=== PATIENT | female | born 1940 | race Caucasian/White ===

== ENCOUNTER 2017-01-29 10:32 | Inpatient (IN) ==
[2017-01-29] MEDS ORDERED: ASPIRIN 325 MG TABLET PO STA (10:56)
[2017-01-29] MEDS ORDERED: DILTIAZEM 50 MG/10 ML VIAL IV STA (10:56)
[2017-01-29] MEDS ORDERED: DILTIAZEM 50 MG/10 ML VIAL IV ONE (11:12)
[2017-01-29] MEDS ORDERED: ASPIRIN 325 MG TABLET ONE (11:12)
[2017-01-29] MEDS ORDERED: DILTIAZEM 100 MG VIAL.ADD IV ONE (11:12)
[2017-01-29] MEDS ORDERED: SODIUM CHLORIDE 0.9% 100 ML IV ONE (11:12)
[2017-01-29] MEDS: DILTIAZEM INJ 100 MG in SODIUM CHLORIDE 0.9% 100 ML IV SCH (11:21)
[2017-01-29 12:00] LABS: Basophils # 0.1 10*3/uL (0.0-0.2); Eosinophils # 0.1 10*3/uL (0.0-0.87); Eosinophils % 1.1 % (0.00-10.9); Hematocrit 35.1 VOL% (35.7-47.0); Immature Granulocytes % 1.2 %; Immature Granulocytes Absolute 0.11 #; Lymphocytes # 1.5 10*3/uL (1.4-4.0); Lymphocytes % 16.4 % (21.3-54.2); Mean Corpuscular HGB Conc 34.8 GM/DL (32-36); Mean Corpuscular Hemoglobin 30 PG (27-34); Mean Corpuscular Volume 87.5 FL (87-102); Mean Platelet Volume 10.5 FL (9.6-12.0); Monocytes # 0.9 10*3/uL (0.11-0.8); Monocytes % 10.3 % (1.7-12.7); Neutrophils # 6.3 10*3/uL (1.4-7.4); Platelet Count 451 T/CUMM (130-400); Red Blood Count 4.01 MC/CUMM (3.8-5.5); Red Cell Distribution Width 13.6 % (9.3-17.3); White Blood Count 9.1 T/CUMM (4-12)
[2017-01-29 12:01] LABS: Hemoglobin 12.2 GM/DL (12.0-16.0)
[2017-01-29 12:08] LABS: Free T4 (Free Thyroxine) 1.2 NG/DL (0.76-1.46); Magnesium 1.3 MG/DL (1.8-2.4)
[2017-01-29 12:15] LABS: Albumin 3.8 G/DL (3.4-5.0); Bilirubin,Total 0.4 MG/DL (0.2-1.0); Calcium 9.2 MG/DL (8.5-10.1); Osmolality,Calculated 260.9 MOS/KG (273-304); Potassium 3.8 MMOL/L (3.5-5.1); Thyroid Stimulating Hormone 11.6 uIU/ml (0.358-3.74)
[2017-01-29 12:19] LABS: Troponin I Only 0.327 NG/ML (0.00-0.045)
[2017-01-29] MEDS ORDERED: DIGOXIN 0.5 MG/2 ML AMP IV STA ×3 (13:17→15:07)
[2017-01-29] MEDS ORDERED: DIGOXIN 0.5 MG/2 ML AMP ONE (13:19)
[2017-01-29] MEDS ORDERED: MAGNESIUM CHLORIDE 64 MG TABLET PO STA (13:20)
[2017-01-29] MEDS ORDERED: MAGNESIUM CHLORIDE 64 MG TABLET PO ONE (13:39)
[2017-01-29] MEDS ORDERED: MAGNESIUM SULF RIDER 4 GM in PREMIX 1 EACH IV PRN (14:11)
[2017-01-29] MEDS ORDERED: MAGNESIUM SULF RIDER 2 GM in PREMIX 1 EACH IV PRN (14:11)
[2017-01-29] MEDS ORDERED: SODIUM CHLORIDE 0.9% 500 ML IV STA (15:30)
[2017-01-29 16:03] LABS: Apearance,Urine CLEAR (Clear); Bilirubin,Urine Negative (Negative); Blood, Urine Small mg/dL (Negative); Glucose,Urine (UA) Negative (Negative); Ketones,Urine Negative (Negative); Mucus,Urine Occasional /LPF (Occasional); Nitrite,Urine Negative (Negative); Protein,Urine >=500 MG/DL; RBC,Urine 4 /HPF (0-4); Squamous Epithelial Cell,Urine Occasional /HPF (0-10); Urine Color Yellow (Yellow); Urine Specific Gravity 1.007 (1.001-1.035); Urine Urobilinogen < 2.0 EU/DL (0.2-1.0); WBC,Urine 1 /HPF (0-6)
[2017-01-29] MEDS ORDERED: ADENOSINE 6 MG/2 ML VIAL ONE (16:03)
[2017-01-29] MEDS ORDERED: METOPROLOL TARTRATE 5 MG/5 ML VIAL IV ONE (16:10)
[2017-01-29] MEDS ORDERED: ENOXAPARIN 60 MG/0.6 ML SYRINGE ONE (16:19)
[2017-01-29] MEDS ORDERED: METOPROLOL TARTRATE 50 MG TABLET ONE (16:19)
[2017-01-29] MEDS ORDERED: ENOXAPARIN 60 MG/0.6 ML SYRINGE SUBCUT STA (16:23)
[2017-01-29] MEDS ORDERED: ADENOSINE 6 MG/2 ML VIAL IV STA (16:23)
[2017-01-29] MEDS ORDERED: METOPROLOL TARTRATE 50 MG TABLET PO STA (16:23)
[2017-01-29] MEDS ORDERED: METOPROLOL TARTRATE 5 MG/5 ML VIAL IV STA (16:24)
[2017-01-29 16:43] LABS: Magnesium 1.5 MG/DL (1.8-2.4); Potassium 3.8 MMOL/L (3.5-5.1)
[2017-01-29] MEDS ORDERED: MAGNESIUM SULF RIDER 50 ML IV ONE (17:22)
[2017-01-29] MEDS: METOPROLOL TARTRATE 50 MG TABLET PO SCH (20:38)
[2017-01-30] MEDS: hydrALAZINE 20 MG/1 ML VIAL IV PRN ×2 (01:35→22:28)
[2017-01-30 05:18] LABS: Basophils # 0.1 10*3/uL (0.0-0.2); Basophils % 0.8 % (0.0-0.8); Eosinophils # 0.4 10*3/uL (0.0-0.87); Eosinophils % 4.6 % (0.00-10.9); Hematocrit 33.1 VOL% (35.7-47.0); Hemoglobin 11.5 GM/DL (12.0-16.0); Immature Granulocytes % 1.1 %; Immature Granulocytes Absolute 0.09 #; Lymphocytes # 2.1 10*3/uL (1.4-4.0); Lymphocytes % 24.8 % (21.3-54.2); Mean Corpuscular HGB Conc 34.7 GM/DL (32-36); Mean Corpuscular Hemoglobin 30 PG (27-34); Mean Corpuscular Volume 86.9 FL (87-102); Mean Platelet Volume 10.3 FL (9.6-12.0); Monocytes % 11.4 % (1.7-12.7); Neutrophils # 4.9 10*3/uL (1.4-7.4); Neutrophils % 57.3 % (38.7-73.9); Platelet Count 419 T/CUMM (130-400); Red Blood Count 3.81 MC/CUMM (3.8-5.5); Red Cell Distribution Width 13.6 % (9.3-17.3); White Blood Count 8.6 T/CUMM (4-12)
[2017-01-30 05:54] LABS: Calcium 8.5 MG/DL (8.5-10.1); Magnesium 2.1 MG/DL (1.8-2.4); Osmolality,Calculated 260.8 MOS/KG (273-304); Potassium 4.4 MMOL/L (3.5-5.1)
[2017-01-30] MEDS: METOPROLOL TARTRATE 50 MG TABLET PO SCH ×2 (09:07→15:40)
[2017-01-30] MEDS ORDERED: ENOXAPARIN 60 MG/0.6 ML SYRINGE SUBCUT SCH (10:00)
[2017-01-30] MEDS: DILTIAZEM 30 MG TABLET PO SCH ×4 (10:40→20:09)
[2017-01-30] MEDS: MAGNESIUM OXIDE 400 MG TABLET PO SCH (15:40)
[2017-01-30] MEDS: DILTIAZEM INJ 100 MG in SODIUM CHLORIDE 0.9% 100 ML IV SCH (15:41)
[2017-01-30] MEDS: METOPROLOL SUCCINATE XL 25 MG TABLET PO SCH (20:09)
[2017-01-30] MEDS: APIXABAN 5 MG TABLET PO SCH (20:09)
[2017-01-30] MEDS ORDERED: IBUPROFEN 600 MG TABLET PO ONE (21:09)
[2017-01-31 05:35] LABS: Basophils # 0.1 10*3/uL (0.0-0.2); Basophils % 0.7 % (0.0-0.8); Eosinophils # 0.3 10*3/uL (0.0-0.87); Eosinophils % 3.9 % (0.00-10.9); Hematocrit 31.8 VOL% (35.7-47.0); Hemoglobin 10.7 GM/DL (12.0-16.0); Immature Granulocytes % 1.3 %; Lymphocytes # 2.2 10*3/uL (1.4-4.0); Lymphocytes % 28.4 % (21.3-54.2); Mean Corpuscular HGB Conc 33.6 GM/DL (32-36); Mean Corpuscular Hemoglobin 30 PG (27-34); Mean Corpuscular Volume 89.1 FL (87-102); Mean Platelet Volume 10.1 FL (9.6-12.0); Monocytes # 1.1 10*3/uL (0.11-0.8); Monocytes % 13.7 % (1.7-12.7); Platelet Count 410 T/CUMM (130-400); Red Blood Count 3.57 MC/CUMM (3.8-5.5); Red Cell Distribution Width 13.5 % (9.3-17.3); White Blood Count 7.6 T/CUMM (4-12)
[2017-01-31 06:06] LABS: Calcium 8.4 MG/DL (8.5-10.1); Osmolality,Calculated 260.9 MOS/KG (273-304); Potassium 4.2 MMOL/L (3.5-5.1)
[2017-01-31] MEDS ORDERED: DILTIAZEM CD 120 MG CAPSULE PO SCH (09:00)
[2017-01-31] MEDS: LEVOTHYROXINE 88 MCG TABLET PO SCH (10:21)
[2017-01-31] MEDS: MAGNESIUM OXIDE 400 MG TABLET PO SCH (10:22)
[2017-01-31] MEDS: METOPROLOL SUCCINATE XL 25 MG TABLET PO SCH (10:22)
[2017-01-31] MEDS: APIXABAN 5 MG TABLET PO SCH (10:23)
[2017-01-31] MEDS: SERTRALINE 100 MG TABLET PO SCH (10:24)
[2017-01-31] MEDS: hydrALAZINE 20 MG/1 ML VIAL IV PRN (12:48)
[2017-01-31] MEDS ORDERED: VALSARTAN/HCTZ 160-12.5 MG TABLET PO SCH (14:30)
[2017-01-31] MEDS ORDERED: clonazePAM 0.5 MG TABLET PO PRN (14:40)
[2017-01-31] MEDS ORDERED: DIAZEPAM 5 MG TABLET ONE (14:48)
[2017-01-31] MEDS ORDERED: diphenhydrAMINE CAP 50 MG CAPSULE ONE (14:48)
[2017-01-31] MEDS ORDERED: ASPIRIN CHEW 81 MG TABLET PO ONE (14:50)
[2017-01-31] MEDS ORDERED: HYDROmorphone 2 MG/1 ML VIAL ONE ×2 (15:07→15:40)
[2017-01-31] MEDS ORDERED: LIDOCAINE 1% 20 ML VIAL ONE (15:08)
[2017-01-31] MEDS ORDERED: VERAPAMIL 5 MG/2 ML VIAL ONE (15:08)
[2017-01-31] MEDS ORDERED: MIDAZOLAM 2 MG/2 ML VIAL ONE (15:08)
[2017-01-31] MEDS ORDERED: NITROGLYCERIN DRIP 50 MG/250 ML BOTTLE IV ONE (15:08)
[2017-01-31] MEDS ORDERED: diphenhydrAMINE 50 MG/1 ML VIAL ONE (15:16)
[2017-01-31] MEDS ORDERED: ADENOSINE 90 MG/30 ML VIAL IV ONE (15:35)
[2017-01-31] MEDS ORDERED: LABETALOL 20 MG/4 ML SYRINGE IV ONE (15:39)
[2017-01-31] MEDS ORDERED: diphenhydrAMINE CAP 50 MG CAPSULE PO ONE (15:45)
[2017-01-31] MEDS ORDERED: DIAZEPAM 5 MG TABLET PO ONE (15:45)
[2017-01-31] MEDS ORDERED: HYDROmorphone 2 MG/1 ML VIAL IV PRN (16:32)
[2017-01-31] MEDS ORDERED: ZALEPLON 5 MG CAPSULE PO PRN (16:32)
[2017-01-31] MEDS ORDERED: ONDANSETRON 4 MG/2 ML VIAL IV PRN (16:32)
[2017-01-31] MEDS ORDERED: CARVEDILOL 6.25 MG TABLET PO SCH (21:00)
[2017-01-31] MEDS: TICAGRELOR 90 MG TABLET PO SCH (21:12)
[2017-02-01 03:10] LABS: Basophils # 0.1 10*3/uL (0.0-0.2); Basophils % 0.7 % (0.0-0.8); Eosinophils # 0.2 10*3/uL (0.0-0.87); Eosinophils % 2.6 % (0.00-10.9); Hematocrit 29.3 VOL% (35.7-47.0); Hemoglobin 9.8 GM/DL (12.0-16.0); Immature Granulocytes % 1.3 %; Lymphocytes % 25.5 % (21.3-54.2); Mean Corpuscular HGB Conc 33.4 GM/DL (32-36); Mean Corpuscular Hemoglobin 30 PG (27-34); Mean Corpuscular Volume 89.3 FL (87-102); Mean Platelet Volume 9.9 FL (9.6-12.0); Monocytes # 1.1 10*3/uL (0.11-0.8); Monocytes % 13.9 % (1.7-12.7); Neutrophils # 4.3 10*3/uL (1.4-7.4); Platelet Count 396 T/CUMM (130-400); Red Blood Count 3.28 MC/CUMM (3.8-5.5); Red Cell Distribution Width 13.5 % (9.3-17.3); White Blood Count 7.7 T/CUMM (4-12)
[2017-02-01 04:13] LABS: Calcium 8.4 MG/DL (8.5-10.1); Osmolality,Calculated 264.7 MOS/KG (273-304); Potassium 4.4 MMOL/L (3.5-5.1)
[2017-02-01] MEDS: LEVOTHYROXINE 88 MCG TABLET PO SCH (06:58)
[2017-02-01] MEDS ORDERED: amLODIPine 5 MG TABLET PO SCH (09:00)
[2017-02-01] MEDS: ASPIRIN EC 81 MG TABLET PO SCH (11:04)
[2017-02-01] MEDS: MAGNESIUM OXIDE 400 MG TABLET PO SCH (11:04)
[2017-02-01] MEDS: CARVEDILOL 12.5 MG TABLET PO SCH ×2 (11:05→21:06)
[2017-02-01] MEDS: SERTRALINE 100 MG TABLET PO SCH (11:06)
[2017-02-01] MEDS: TICAGRELOR 90 MG TABLET PO SCH ×2 (11:06→21:06)
[2017-02-01] MEDS: ENOXAPARIN 40 MG/0.4 ML SYRINGE SUBCUT SCH (11:07)
[2017-02-01] MEDS ORDERED: PHENOL 1.4% THROAT SPRAY 177 ML BOTTLE PO PRN (16:39)
[2017-02-01] MEDS: hydrALAZINE 20 MG/1 ML VIAL IV PRN (17:38)
[2017-02-02 05:24] LABS: Basophils # 0.1 10*3/uL (0.0-0.2); Basophils % 0.8 % (0.0-0.8); Eosinophils # 0.3 10*3/uL (0.0-0.87); Eosinophils % 4.2 % (0.00-10.9); Hemoglobin 9.2 GM/DL (12.0-16.0); Immature Granulocytes % 1.2 %; Immature Granulocytes Absolute 0.09 #; Lymphocytes % 27.6 % (21.3-54.2); Mean Corpuscular HGB Conc 34.1 GM/DL (32-36); Mean Corpuscular Hemoglobin 30 PG (27-34); Mean Corpuscular Volume 88.2 FL (87-102); Monocytes % 13.3 % (1.7-12.7); Neutrophils # 3.9 10*3/uL (1.4-7.4); Neutrophils % 52.9 % (38.7-73.9); Platelet Count 384 T/CUMM (130-400); Red Blood Count 3.06 MC/CUMM (3.8-5.5); Red Cell Distribution Width 13.7 % (9.3-17.3); White Blood Count 7.4 T/CUMM (4-12)
[2017-02-02 05:50] LABS: Calcium 8.4 MG/DL (8.5-10.1); Magnesium 1.8 MG/DL (1.8-2.4); Osmolality,Calculated 269.4 MOS/KG (273-304); Potassium 3.9 MMOL/L (3.5-5.1)
[2017-02-02] MEDS: LEVOTHYROXINE 88 MCG TABLET PO SCH (07:11)
[2017-02-02] MEDS: amLODIPine 10 MG TABLET PO SCH (10:09)
[2017-02-02] MEDS: SERTRALINE 100 MG TABLET PO SCH (10:10)
[2017-02-02] MEDS: MAGNESIUM OXIDE 400 MG TABLET PO SCH (10:10)
[2017-02-02] MEDS: TICAGRELOR 90 MG TABLET PO SCH ×2 (10:10→21:35)
[2017-02-02] MEDS: ASPIRIN EC 81 MG TABLET PO SCH (10:10)
[2017-02-02] MEDS: ENOXAPARIN 40 MG/0.4 ML SYRINGE SUBCUT SCH (10:11)
[2017-02-02] MEDS: CARVEDILOL 12.5 MG TABLET PO SCH ×2 (10:11→21:35)
[2017-02-02] MEDS ORDERED: DIAZEPAM 5 MG TABLET PO ONE (10:34)
[2017-02-02] MEDS ORDERED: diphenhydrAMINE CAP 25 MG CAPSULE PO ONE (10:34)
[2017-02-02] MEDS ORDERED: MAGNESIUM SULF RIDER 2 GM in PREMIX 1 EACH IV PRN (10:34)
[2017-02-02] MEDS ORDERED: POTASSIUM CHLORIDE RIDER 10 MEQ in PREMIX 1 EACH IV PRN (10:34)
[2017-02-03 05:14] LABS: Basophils # 0.1 10*3/uL (0.0-0.2); Eosinophils # 0.3 10*3/uL (0.0-0.87); Eosinophils % 4.4 % (0.00-10.9); Hematocrit 27.5 VOL% (35.7-47.0); Hemoglobin 9.4 GM/DL (12.0-16.0); Immature Granulocytes % 1.5 %; Immature Granulocytes Absolute 0.11 #; Lymphocytes # 1.9 10*3/uL (1.4-4.0); Lymphocytes % 25.8 % (21.3-54.2); Mean Corpuscular HGB Conc 34.2 GM/DL (32-36); Mean Corpuscular Hemoglobin 30 PG (27-34); Mean Platelet Volume 9.4 FL (9.6-12.0); Monocytes % 13.4 % (1.7-12.7); Neutrophils # 3.9 10*3/uL (1.4-7.4); Neutrophils % 53.9 % (38.7-73.9); Platelet Count 348 T/CUMM (130-400); Red Blood Count 3.09 MC/CUMM (3.8-5.5); Red Cell Distribution Width 13.7 % (9.3-17.3); White Blood Count 7.3 T/CUMM (4-12)
[2017-02-03 05:57] LABS: Calcium 8.4 MG/DL (8.5-10.1); Osmolality,Calculated 272.1 MOS/KG (273-304); Potassium 3.8 MMOL/L (3.5-5.1)
[2017-02-03] MEDS: LEVOTHYROXINE 88 MCG TABLET PO SCH ×2 (06:07→08:27)
[2017-02-03] MEDS ORDERED: DIAZEPAM 5 MG TABLET ONE (08:21)
[2017-02-03] MEDS ORDERED: diphenhydrAMINE CAP 50 MG CAPSULE ONE (08:21)
[2017-02-03] MEDS: MAGNESIUM OXIDE 400 MG TABLET PO SCH (08:28)
[2017-02-03] MEDS: CARVEDILOL 12.5 MG TABLET PO SCH ×2 (08:28→21:32)
[2017-02-03] MEDS: SERTRALINE 100 MG TABLET PO SCH (08:28)
[2017-02-03] MEDS: amLODIPine 10 MG TABLET PO SCH (08:28)
[2017-02-03] MEDS: ASPIRIN EC 81 MG TABLET PO SCH (08:28)
[2017-02-03] MEDS: TICAGRELOR 90 MG TABLET PO SCH ×2 (08:28→21:32)
[2017-02-03] MEDS ORDERED: MIDAZOLAM 2 MG/2 ML VIAL ONE (08:46)
[2017-02-03] MEDS ORDERED: LIDOCAINE 1% 20 ML VIAL ONE (08:46)
[2017-02-03] MEDS ORDERED: HYDROmorphone 2 MG/1 ML VIAL ONE (08:46)
[2017-02-03] MEDS ORDERED: ENOXAPARIN 60 MG/0.6 ML SYRINGE ONE (09:08)
[2017-02-03] MEDS ORDERED: ENOXAPARIN 30 MG/0.3 ML SYRINGE ONE (09:10)
[2017-02-03] MEDS ORDERED: LABETALOL 20 MG/4 ML SYRINGE IV ONE (09:26)
[2017-02-03 11:55] LABS: CKMB % 4.4 %
[2017-02-03 11:57] LABS: Troponin I Only 0.161 NG/ML (0.00-0.045)
[2017-02-04 03:46] LABS: Basophils # 0.1 10*3/uL (0.0-0.2); Basophils % 0.6 % (0.0-0.8); Eosinophils # 0.3 10*3/uL (0.0-0.87); Eosinophils % 4.1 % (0.00-10.9); Hematocrit 26.7 VOL% (35.7-47.0); Hemoglobin 8.9 GM/DL (12.0-16.0); Immature Granulocytes % 1.3 %; Lymphocytes # 1.5 10*3/uL (1.4-4.0); Lymphocytes % 18.7 % (21.3-54.2); Mean Corpuscular HGB Conc 33.3 GM/DL (32-36); Mean Corpuscular Hemoglobin 30 PG (27-34); Mean Corpuscular Volume 90.5 FL (87-102); Mean Platelet Volume 10.1 FL (9.6-12.0); Monocytes % 12.7 % (1.7-12.7); Neutrophils # 4.9 10*3/uL (1.4-7.4); Neutrophils % 62.6 % (38.7-73.9); Platelet Count 363 T/CUMM (130-400); Red Blood Count 2.95 MC/CUMM (3.8-5.5); Red Cell Distribution Width 13.8 % (9.3-17.3); White Blood Count 7.8 T/CUMM (4-12)
[2017-02-04 04:11] LABS: CKMB % 6.4 %; Calcium 8.3 MG/DL (8.5-10.1); Potassium 4.7 MMOL/L (3.5-5.1)
[2017-02-04 04:42] LABS: Troponin I Only 2.39 NG/ML (0.00-0.045)
[2017-02-04] MEDS: LEVOTHYROXINE 88 MCG TABLET PO SCH (06:12)
[2017-02-04] MEDS: CARVEDILOL 12.5 MG TABLET PO SCH (08:16)
[2017-02-04] MEDS: TICAGRELOR 90 MG TABLET PO SCH (08:16)
[2017-02-04] MEDS: amLODIPine 10 MG TABLET PO SCH (08:16)
[2017-02-04] MEDS: MAGNESIUM OXIDE 400 MG TABLET PO SCH (08:17)
[2017-02-04] MEDS: SERTRALINE 100 MG TABLET PO SCH (08:18)
[2017-02-04] MEDS: ASPIRIN EC 81 MG TABLET PO SCH (08:18)
[2017-02-04] MEDS ORDERED: APIXABAN 2.5 MG TABLET PO SCH (09:00)
[2017-02-04 11:56] VITALS: BP 135/62
[2017-02-04] MEDS ORDERED: ROSUVASTATIN 20 MG TABLET PO SCH (21:00)
[2017-02-04] MEDS ORDERED: CARVEDILOL 25 MG TABLET PO SCH (21:00)
== END 2017-02-04 13:00 | disposition home or self-care (01) | DRG 247 ==
LOC: N.ED 10:32 → N.EDINP 14:10 → N.CC 17:29 → N.TELES 01-30 20:59
PROVIDERS: ADMIT Internal Medicine; ATTEND Internal Medicine

== ENCOUNTER 2021-08-11 17:03 | Inpatient (IN) ==
[2021-08-11] MEDS ORDERED: SODIUM CHLORIDE 0.9% 500 ML IV STA ×2 (17:54→18:50)
[2021-08-11 18:00] LABS: Basophils % 0.4 % (0.0-0.8); Eosinophils % 0.2 % (0.00-10.9); Hematocrit 26.5 VOL% (35.7-47.0); Hemoglobin 8.2 GM/DL (12.0-16.0); Immature Granulocytes % 0.6 %; Immature Granulocytes Absolute 0.06 #; Lymphocytes % 10.4 % (21.3-54.2); Mean Corpuscular HGB Conc 30.9 GM/DL (32-36); Mean Corpuscular Volume 94.3 FL (87-102); Mean Platelet Volume 12.1 FL (9.6-12.0); Monocytes # 0.5 10*3/uL (0.11-0.8); Monocytes % 5.5 % (1.7-12.7); Neutrophils % 82.9 % (38.7-73.9); Platelet Count 238 T/CUMM (130-400); Red Blood Count 2.81 MC/CUMM (3.8-5.5); Red Cell Distribution Width 13.6 % (9.3-17.3); White Blood Count 9.8 T/CUMM (4-12)
[2021-08-11 18:14] LABS: Albumin 3.4 G/DL (3.4-5.0); Bilirubin,Total 0.4 MG/DL (0.20-1.00); Calcium 8.8 MG/DL (8.5-10.1); Osmolality,Calculated 291.5 MOS/KG (273-304); Potassium 3.3 MMOL/L (3.5-5.1); Total Protein 6.5 G/DL (6.4-8.2)
[2021-08-11 18:49] LABS: Bacteria,Urine Many /HPF (Few); Mucus,Urine Occasional /LPF (Occasional); Squamous Epithelial Cell,Urine Occasional /HPF (0-10)
[2021-08-11 18:50] LABS: Bilirubin,Urine Negative (Negative); Blood, Urine Negative (Negative); Glucose,Urine (UA) Negative (Negative); Ketones,Urine Negative (Negative); Nitrite,Urine Negative (Negative); Protein,Urine >=300 mg/dL (Negative); Urine Appearance Clear (Clear); Urine Color Yellow (Yellow); Urine Urobilinogen 0.2 eU/dL (<2.0)
[2021-08-11] MEDS ORDERED: SODIUM CHLORIDE 0.9% 1,000 ML IV STA (19:24)
[2021-08-11] MEDS ORDERED: hydrALAZINE 20 MG/1 ML VIAL IV PRN (19:46)
[2021-08-11] MEDS ORDERED: DEXTROSE 10% 250 ML BAG IV PRN (19:46)
[2021-08-11] MEDS ORDERED: GLUCAGON 1 MG VIAL IM PRN (19:46)
[2021-08-11] MEDS ORDERED: ONDANSETRON 4 MG/2 ML VIAL IV STA (19:47)
[2021-08-11] MEDS ORDERED: SODIUM CHLORIDE 0.9% 1,000 ML IV SCH (20:00)
[2021-08-11] MEDS ORDERED: PROMETHAZINE INJ 12.5 MG in SODIUM CHLORIDE 0.9% 50 ML IV PRN (20:11)
[2021-08-11] MEDS ORDERED: PROMETHAZINE 25 MG/1 ML VIAL ONE (20:20)
[2021-08-11] MEDS ORDERED: HYDROmorphone 1 MG/1 ML SYRINGE IV PRN (20:24)
[2021-08-11] MEDS ORDERED: LEVOFLOXACIN INJ 750 MG/150 ML PREMIX IV ONE (21:00)
[2021-08-12] MEDS: SODIUM CHLOR 0.9% KCL 20 MEQ 20 MEQ/1,000 ML BAG IV SCH ×3 (00:08→21:08)
[2021-08-12] MEDS: metroNIDAZOLE INJ 500 MG/100 ML PREMIX IV SCH ×4 (00:09→22:31)
[2021-08-12] MEDS: VANCOMYCIN 125 MG CAPSULE PO SCH ×5 (01:01→22:29)
[2021-08-12 04:42] LABS: Basophils % 0.3 % (0.0-0.8); Hematocrit 25.2 VOL% (35.7-47.0); Hemoglobin 7.8 GM/DL (12.0-16.0); Immature Granulocytes % 0.6 %; Immature Granulocytes Absolute 0.08 #; Lymphocytes # 0.7 10*3/uL (1.4-4.0); Lymphocytes % 5.3 % (21.3-54.2); Mean Corpuscular Volume 95.8 FL (87-102); Mean Platelet Volume 11.7 FL (9.6-12.0); Monocytes # 0.9 10*3/uL (0.11-0.8); Neutrophils % 86.8 % (38.7-73.9); Platelet Count 203 T/CUMM (130-400); Red Blood Count 2.63 MC/CUMM (3.8-5.5); Red Cell Distribution Width 13.6 % (9.3-17.3); White Blood Count 13.1 T/CUMM (4-12)
[2021-08-12 05:11] LABS: Calcium 8.2 MG/DL (8.5-10.1); Osmolality,Calculated 295.1 MOS/KG (273-304); Potassium 3.4 MMOL/L (3.5-5.1); Thyroid Stimulating Hormone 2.31 uIU/ml (0.358-3.74)
[2021-08-12] MEDS ORDERED: POTASSIUM CHLORIDE 20 MEQ TABLET PO ONE (08:00)
[2021-08-12] MEDS: amLODIPine 10 MG TABLET PO SCH (10:35)
[2021-08-12] MEDS: SERTRALINE 50 MG TABLET PO SCH (10:35)
[2021-08-12] MEDS: clonazePAM 0.5 MG TABLET PO SCH ×2 (10:35→21:02)
[2021-08-12] MEDS: METOPROLOL TARTRATE 50 MG TABLET PO SCH ×2 (10:35→21:02)
[2021-08-12] MEDS: PANTOPRAZOLE 40 MG VIAL IV SCH (11:30)
[2021-08-12] MEDS: PRAZOSIN 1 MG CAPSULE PO SCH (21:00)
[2021-08-13 05:00] LABS: Basophils # 0.1 10*3/uL (0.0-0.2); Basophils % 0.4 % (0.0-0.8); Eosinophils # 0.1 10*3/uL (0.0-0.87); Eosinophils % 0.7 % (0.00-10.9); Hematocrit 28.3 VOL% (35.7-47.0); Hemoglobin 8.5 GM/DL (12.0-16.0); Immature Granulocytes % 1.1 %; Immature Granulocytes Absolute 0.13 #; Lymphocytes # 0.4 10*3/uL (1.4-4.0); Lymphocytes % 3.4 % (21.3-54.2); Mean Corpuscular Volume 97.9 FL (87-102); Mean Platelet Volume 12.4 FL (9.6-12.0); Monocytes # 0.7 10*3/uL (0.11-0.8); Monocytes % 5.8 % (1.7-12.7); Neutrophils % 88.6 % (38.7-73.9); Platelet Count 220 T/CUMM (130-400); Red Blood Count 2.89 MC/CUMM (3.8-5.5); Red Cell Distribution Width 13.9 % (9.3-17.3); White Blood Count 12.2 T/CUMM (4-12)
[2021-08-13 05:29] LABS: % Iron Saturation 11.5 % (18-50); Calcium 8.2 MG/DL (8.5-10.1); Osmolality,Calculated 298.7 MOS/KG (273-304); Potassium 4.6 MMOL/L (3.5-5.1)
[2021-08-13 05:33] LABS: Eosinophils 1 % (0-10); Lymphocytes 4 % (20-55); Total Cells Counted 100
[2021-08-13 05:34] LABS: Microcytosis Slight
[2021-08-13 05:35] LABS: Burr Cells Slight; Hypochromia Slight; Platelet Estimate Normal
[2021-08-13] MEDS: VANCOMYCIN 125 MG CAPSULE PO SCH ×4 (05:40→22:05)
[2021-08-13] MEDS: metroNIDAZOLE INJ 500 MG/100 ML PREMIX IV SCH ×3 (05:40→22:05)
[2021-08-13] MEDS: LEVOTHYROXINE 150 MCG TABLET PO SCH (05:41)
[2021-08-13] MEDS: SODIUM CHLOR 0.9% KCL 20 MEQ 20 MEQ/1,000 ML BAG IV SCH ×2 (05:41→09:24)
[2021-08-13] MEDS ORDERED: SODIUM BICARB INJ 100 MEQ in DEXTROSE 5% NACL 0.45% 1,000 ML IV SCH (08:00)
[2021-08-13] MEDS: ONDANSETRON 4 MG/2 ML VIAL IV PRN (09:12)
[2021-08-13] MEDS: PANTOPRAZOLE 40 MG VIAL IV SCH (09:16)
[2021-08-13] MEDS: clonazePAM 0.5 MG TABLET PO SCH ×2 (09:17→22:05)
[2021-08-13] MEDS: ROSUVASTATIN 20 MG TABLET PO SCH (09:18)
[2021-08-13] MEDS: SERTRALINE 50 MG TABLET PO SCH (09:18)
[2021-08-13] MEDS: METOPROLOL TARTRATE 50 MG TABLET PO SCH (09:23)
[2021-08-13] MEDS: PRAZOSIN 1 MG CAPSULE PO SCH (09:23)
[2021-08-13] MEDS: amLODIPine 10 MG TABLET PO SCH (09:24)
[2021-08-13] MEDS ORDERED: NITROGLYCERIN SL 0.4 MG TABLET SL ONE (11:32)
[2021-08-13] MEDS ORDERED: ASPIRIN CHEW 81 MG TABLET PO ONE (11:34)
[2021-08-13 12:10] LABS: Arterial Base Excess iSTAT -13 MMOL/L (-2.5-2.5); Arterial Bicarbonate iSTAT 14.6 MMOL/L (20-26); Arterial O2 Saturation iSTAT 99 % (95-100); Arterial PCO2 iSTAT 38 MM HG (35-48); Arterial PO2 iSTAT 146 MM HG (80-95); Arterial Total CO2 iSTAT 16 MMO/L (23-27); Arterial pH iSTAT 7.187 (7.35-7.45)
[2021-08-13] MEDS ORDERED: SODIUM BICARBONATE 50 MEQ/50 ML VIAL IV ONE ×2 (12:11→12:43)
[2021-08-13] MEDS ORDERED: NITROGLYCERIN SL 0.4 MG TABLET SL PRN (12:18)
[2021-08-13] MEDS ORDERED: SODIUM BICARB INJ 50 MEQ in IV BAG 1 EACH IV ONE ×2 (12:30→14:00)
[2021-08-13 12:38] LABS: Calcium 8.1 MG/DL (8.5-10.1); Osmolality,Calculated 298.7 MOS/KG (273-304); Potassium 4.4 MMOL/L (3.5-5.1)
[2021-08-13] MEDS ORDERED: ENOXAPARIN 60 MG/0.6 ML SYRINGE SUBCUT ONE (12:38)
[2021-08-13] MEDS ORDERED: FUROSEMIDE 40 MG/4 ML VIAL IV ONE (12:48)
[2021-08-13] MEDS: FUROSEMIDE 40 MG/4 ML VIAL IV SCH (18:21)
[2021-08-13] MEDS ORDERED: LEVOFLOXACIN INJ 500 MG/100 ML PREMIX IV SCH (21:00)
[2021-08-13] MEDS: CHOLESTYRAMINE 4 GM PACK PO SCH (22:05)
[2021-08-14] MEDS: PRAZOSIN 1 MG CAPSULE PO SCH ×3 (00:15→21:30)
[2021-08-14] MEDS: METOPROLOL TARTRATE 50 MG TABLET PO SCH ×3 (00:15→21:28)
[2021-08-14] MEDS: metroNIDAZOLE INJ 500 MG/100 ML PREMIX IV SCH ×3 (05:24→21:28)
[2021-08-14] MEDS: LEVOTHYROXINE 150 MCG TABLET PO SCH (05:24)
[2021-08-14] MEDS: VANCOMYCIN 125 MG CAPSULE PO SCH ×3 (05:24→14:17)
[2021-08-14 05:30] LABS: Basophils % 0.3 % (0.0-0.8); Hematocrit 26.8 VOL% (35.7-47.0); Immature Granulocytes % 2.2 %; Immature Granulocytes Absolute 0.33 #; Lymphocytes # 0.4 10*3/uL (1.4-4.0); Mean Corpuscular HGB Conc 29.9 GM/DL (32-36); Mean Corpuscular Volume 97.8 FL (87-102); Mean Platelet Volume 12.2 FL (9.6-12.0); Monocytes # 1.1 10*3/uL (0.11-0.8); Monocytes % 7.6 % (1.7-12.7); Neutrophils % 86.9 % (38.7-73.9); Platelet Count 261 T/CUMM (130-400); Red Blood Count 2.74 MC/CUMM (3.8-5.5); Red Cell Distribution Width 14.3 % (9.3-17.3); White Blood Count 14.8 T/CUMM (4-12)
[2021-08-14 05:48] LABS: Calcium 8.3 MG/DL (8.5-10.1); Osmolality,Calculated 300.5 MOS/KG (273-304); Potassium 4.1 MMOL/L (3.5-5.1)
[2021-08-14 06:07] LABS: Hypochromia Slight; Lymphocytes 2 % (20-55); Microcytosis Slight; Platelet Estimate Adequate; Total Cells Counted 100
[2021-08-14] MEDS ORDERED: SODIUM BICARBONATE 50 MEQ/50 ML VIAL IV ONE (07:51)
[2021-08-14] MEDS ORDERED: SODIUM BICARB INJ 50 MEQ in IV BAG 1 EACH IV ONE (08:30)
[2021-08-14] MEDS: FUROSEMIDE 40 MG/4 ML VIAL IV SCH (09:05)
[2021-08-14] MEDS: PANTOPRAZOLE 40 MG VIAL IV SCH (09:05)
[2021-08-14] MEDS: ROSUVASTATIN 20 MG TABLET PO SCH (09:08)
[2021-08-14] MEDS: FERRIC GLUCONATE COMPLEX 125 MG in SODIUM CHLORIDE 0.9% 100 ML IV SCH (09:08)
[2021-08-14] MEDS: amLODIPine 10 MG TABLET PO SCH (09:08)
[2021-08-14] MEDS: ASPIRIN EC 81 MG TABLET PO SCH (09:08)
[2021-08-14] MEDS: SERTRALINE 50 MG TABLET PO SCH (09:08)
[2021-08-14] MEDS: clonazePAM 0.5 MG TABLET PO SCH (09:09)
[2021-08-14 10:41] LABS: Arterial Base Excess iSTAT -8 MMOL/L (-2.5-2.5); Arterial Bicarbonate iSTAT 19.8 MMOL/L (20-26); Arterial O2 Saturation iSTAT 96 % (95-100); Arterial PCO2 iSTAT 50 MM HG (35-48); Arterial PO2 iSTAT 96 MM HG (80-95); Arterial Total CO2 iSTAT 21 MMO/L (23-27); Arterial pH iSTAT 7.202 (7.35-7.45)
[2021-08-14] MEDS: CHOLESTYRAMINE 4 GM PACK PO SCH ×2 (10:51→21:27)
[2021-08-14] MEDS ORDERED: FUROSEMIDE INJ 160 MG in SODIUM CHLORIDE 0.9% 50 ML IV ONE (11:25)
[2021-08-14] MEDS: ALBUTEROL/IPRATROPIUM 3 ML NEB RESP TX SCH ×2 (12:13→19:00)
[2021-08-14 14:41] LABS: Arterial Base Excess iSTAT -7 MMOL/L (-2.5-2.5); Arterial Bicarbonate iSTAT 19.4 MMOL/L (20-26); Arterial O2 Saturation iSTAT 95 % (95-100); Arterial PCO2 iSTAT 40 MM HG (35-48); Arterial PO2 iSTAT 84 MM HG (80-95); Arterial Total CO2 iSTAT 21 MMO/L (23-27); Arterial pH iSTAT 7.294 (7.35-7.45)
[2021-08-14] MEDS: FUROSEMIDE 100 MG/10 ML VIAL IV SCH (16:05)
[2021-08-14] MEDS: VANCOMYCIN 50 MG/ML 60 ML/BOTTLE PO SCH ×2 (16:22→21:27)
[2021-08-15] MEDS: ALBUTEROL/IPRATROPIUM 3 ML NEB RESP TX SCH ×4 (01:10→18:38)
[2021-08-15 03:20] LABS: ABG Base Excess -6.7 MMOL/L (-2.5-2.5); ABG HCO3 18.9 MMOL/L (20-26); ABG Oxygen Saturation 98.8 % (95-100); ABG PH 7.316 (7.35-7.45); ABG TCO2 17.6 MMOL/L (23-27)
[2021-08-15] MEDS: VANCOMYCIN 50 MG/ML 60 ML/BOTTLE PO SCH ×4 (03:20→20:27)
[2021-08-15 03:39] LABS: Basophils % 0.3 % (0.0-0.8); Eosinophils % 0.1 % (0.00-10.9); Hematocrit 24.4 VOL% (35.7-47.0); Hemoglobin 7.7 GM/DL (12.0-16.0); Immature Granulocytes Absolute 0.09 #; Lymphocytes % 10.9 % (21.3-54.2); Mean Corpuscular HGB Conc 31.6 GM/DL (32-36); Mean Corpuscular Volume 93.8 FL (87-102); Monocytes % 11.2 % (1.7-12.7); Neutrophils % 76.5 % (38.7-73.9); Platelet Count 232 T/CUMM (130-400); Red Cell Distribution Width 14.2 % (9.3-17.3); White Blood Count 9.3 T/CUMM (4-12)
[2021-08-15 04:00] LABS: Calcium 7.6 MG/DL (8.5-10.1); Osmolality,Calculated 308.1 MOS/KG (273-304); Potassium 3.4 MMOL/L (3.5-5.1)
[2021-08-15] MEDS: metroNIDAZOLE INJ 500 MG/100 ML PREMIX IV SCH ×3 (05:58→21:53)
[2021-08-15] MEDS: LEVOTHYROXINE 150 MCG TABLET PO SCH (05:58)
[2021-08-15] MEDS ORDERED: POTASSIUM CHLORIDE 20 MEQ TABLET PO PRN (06:44)
[2021-08-15] MEDS ORDERED: SERTRALINE 50 MG TABLET PO SCH (09:00)
[2021-08-15] MEDS ORDERED: EPOETIN ALFA-EPBX 10,000 UNIT/ML VIAL SUBCUT ONE (09:00)
[2021-08-15] MEDS: ASPIRIN EC 81 MG TABLET PO SCH (09:36)
[2021-08-15] MEDS: SERTRALINE 100 MG TABLET PO SCH (09:36)
[2021-08-15] MEDS: PRAZOSIN 1 MG CAPSULE PO SCH ×2 (09:36→20:26)
[2021-08-15] MEDS: amLODIPine 10 MG TABLET PO SCH (09:37)
[2021-08-15] MEDS: FUROSEMIDE 100 MG/10 ML VIAL IV SCH ×2 (09:37→15:24)
[2021-08-15] MEDS: METOPROLOL TARTRATE 50 MG TABLET PO SCH ×2 (09:37→20:27)
[2021-08-15] MEDS: ROSUVASTATIN 20 MG TABLET PO SCH (09:37)
[2021-08-15] MEDS: CHOLESTYRAMINE 4 GM PACK PO SCH ×2 (09:38→22:16)
[2021-08-15] MEDS: PANTOPRAZOLE 40 MG VIAL IV SCH (09:38)
[2021-08-15] MEDS: FERRIC GLUCONATE COMPLEX 125 MG in SODIUM CHLORIDE 0.9% 100 ML IV SCH (09:43)
[2021-08-15] MEDS: POTASSIUM BICARB EFFERVESCENT 20 MEQ TAB.EFF PER TUBE PRN ×3 (13:58→17:35)
[2021-08-15] MEDS: ONDANSETRON 4 MG/2 ML VIAL IV PRN (21:56)
[2021-08-16] MEDS: POTASSIUM BICARB EFFERVESCENT 20 MEQ TAB.EFF PER TUBE PRN ×3 (00:55→05:00)
[2021-08-16] MEDS: ALBUTEROL/IPRATROPIUM 3 ML NEB RESP TX SCH ×5 (00:55→23:44)
[2021-08-16] MEDS: VANCOMYCIN 50 MG/ML 60 ML/BOTTLE PO SCH ×3 (03:00→17:06)
[2021-08-16 03:54] LABS: Basophils % 0.4 % (0.0-0.8); Eosinophils # 0.2 10*3/uL (0.0-0.87); Eosinophils % 1.8 % (0.00-10.9); Hematocrit 21.9 VOL% (35.7-47.0); Hemoglobin 6.8 GM/DL (12.0-16.0); Immature Granulocytes % 1.1 %; Immature Granulocytes Absolute 0.09 #; Lymphocytes # 0.9 10*3/uL (1.4-4.0); Lymphocytes % 10.1 % (21.3-54.2); Mean Corpuscular HGB Conc 31.1 GM/DL (32-36); Mean Corpuscular Volume 93.2 FL (87-102); Mean Platelet Volume 11.9 FL (9.6-12.0); Monocytes # 1.1 10*3/uL (0.11-0.8); Monocytes % 12.5 % (1.7-12.7); Neutrophils % 74.1 % (38.7-73.9); Platelet Count 218 T/CUMM (130-400); Red Blood Count 2.35 MC/CUMM (3.8-5.5); Red Cell Distribution Width 14.2 % (9.3-17.3); White Blood Count 8.4 T/CUMM (4-12)
[2021-08-16] MEDS ORDERED: SODIUM CHLORIDE 0.9% 1,000 ML IV PRN (04:10)
[2021-08-16 04:15] LABS: Calcium 7.3 MG/DL (8.5-10.1); Osmolality,Calculated 301.5 MOS/KG (273-304); Potassium 3.5 MMOL/L (3.5-5.1)
[2021-08-16] MEDS: metroNIDAZOLE INJ 500 MG/100 ML PREMIX IV SCH ×2 (06:19→15:13)
[2021-08-16] MEDS: LEVOTHYROXINE 150 MCG TABLET PO SCH (06:20)
[2021-08-16] MEDS: hydrOXYzine HCL 25 MG TABLET PO PRN ×3 (07:47→20:09)
[2021-08-16] MEDS: FERRIC GLUCONATE COMPLEX 125 MG in SODIUM CHLORIDE 0.9% 100 ML IV SCH (08:50)
[2021-08-16] MEDS: FUROSEMIDE 100 MG/10 ML VIAL IV SCH (08:51)
[2021-08-16] MEDS: SERTRALINE 100 MG TABLET PO SCH (08:53)
[2021-08-16] MEDS: PRAZOSIN 1 MG CAPSULE PO SCH ×2 (08:53→21:23)
[2021-08-16] MEDS: ASPIRIN EC 81 MG TABLET PO SCH (08:54)
[2021-08-16] MEDS: amLODIPine 10 MG TABLET PO SCH (08:54)
[2021-08-16] MEDS: METOPROLOL TARTRATE 50 MG TABLET PO SCH ×2 (08:54→21:23)
[2021-08-16] MEDS: ROSUVASTATIN 20 MG TABLET PO SCH (08:54)
[2021-08-16] MEDS: PANTOPRAZOLE 40 MG VIAL IV SCH (08:56)
[2021-08-16] MEDS: CHOLESTYRAMINE 4 GM PACK PO SCH ×2 (09:00→21:24)
[2021-08-16] MEDS: ONDANSETRON 4 MG/2 ML VIAL IV PRN ×2 (09:03→17:55)
[2021-08-16] MEDS ORDERED: METOPROLOL TARTRATE 5 MG/5 ML VIAL IV ONE ×3 (11:00→11:07)
[2021-08-16] MEDS: DILTIAZEM INJ 100 MG in SODIUM CHLORIDE 0.9% 100 ML IV SCH (12:08)
[2021-08-16] MEDS ORDERED: FUROSEMIDE 40 MG/4 ML VIAL IV ONE (16:00)
[2021-08-17] MEDS: VANCOMYCIN 50 MG/ML 60 ML/BOTTLE PO SCH ×5 (03:05→22:30)
[2021-08-17 04:05] LABS: Basophils % 0.5 % (0.0-0.8); Eosinophils # 0.3 10*3/uL (0.0-0.87); Eosinophils % 2.9 % (0.00-10.9); Hematocrit 25.7 VOL% (35.7-47.0); Hemoglobin 8.3 GM/DL (12.0-16.0); Immature Granulocytes % 2.2 %; Immature Granulocytes Absolute 0.19 #; Lymphocytes # 0.9 10*3/uL (1.4-4.0); Lymphocytes % 10.4 % (21.3-54.2); Mean Corpuscular HGB Conc 32.3 GM/DL (32-36); Mean Corpuscular Volume 91.5 FL (87-102); Mean Platelet Volume 11.8 FL (9.6-12.0); Monocytes % 11.6 % (1.7-12.7); Neutrophils % 72.4 % (38.7-73.9); Platelet Count 239 T/CUMM (130-400); Red Blood Count 2.81 MC/CUMM (3.8-5.5); Red Cell Distribution Width 13.8 % (9.3-17.3); White Blood Count 8.6 T/CUMM (4-12)
[2021-08-17 04:23] LABS: Calcium 7.3 MG/DL (8.5-10.1); Potassium 3.4 MMOL/L (3.5-5.1)
[2021-08-17] MEDS: LEVOTHYROXINE 150 MCG TABLET PO SCH (05:26)
[2021-08-17] MEDS: ALBUTEROL/IPRATROPIUM 3 ML NEB RESP TX SCH ×3 (07:30→19:56)
[2021-08-17] MEDS ORDERED: POTASSIUM CHLORIDE 20 MEQ TABLET PO ONE (07:34)
[2021-08-17] MEDS: ROSUVASTATIN 20 MG TABLET PO SCH (09:56)
[2021-08-17] MEDS: METOPROLOL TARTRATE 50 MG TABLET PO SCH ×2 (09:57→22:29)
[2021-08-17] MEDS: FUROSEMIDE 80 MG TABLET PO SCH (09:57)
[2021-08-17] MEDS: amLODIPine 10 MG TABLET PO SCH (09:57)
[2021-08-17] MEDS: SERTRALINE 100 MG TABLET PO SCH (09:59)
[2021-08-17] MEDS: ONDANSETRON 4 MG/2 ML VIAL IV PRN ×3 (09:59→20:13)
[2021-08-17] MEDS: PRAZOSIN 1 MG CAPSULE PO SCH ×2 (10:00→22:37)
[2021-08-17] MEDS: ASPIRIN EC 81 MG TABLET PO SCH (10:01)
[2021-08-17] MEDS: CHOLESTYRAMINE 4 GM PACK PO SCH ×2 (10:01→22:37)
[2021-08-17] MEDS: FERRIC GLUCONATE COMPLEX 125 MG in SODIUM CHLORIDE 0.9% 100 ML IV SCH (10:02)
[2021-08-17] MEDS: PANTOPRAZOLE 40 MG VIAL IV SCH (10:02)
[2021-08-17] MEDS: DILTIAZEM INJ 100 MG in SODIUM CHLORIDE 0.9% 100 ML IV SCH (12:19)
[2021-08-17] MEDS: ACETAMINOPHEN 325 MG TABLET PO PRN (17:08)
[2021-08-18] MEDS: ALBUTEROL/IPRATROPIUM 3 ML NEB RESP TX SCH ×4 (01:42→19:40)
[2021-08-18] MEDS: VANCOMYCIN 50 MG/ML 60 ML/BOTTLE PO SCH ×4 (02:56→21:08)
[2021-08-18 05:24] LABS: Basophils # 0.1 10*3/uL (0.0-0.2); Basophils % 0.6 % (0.0-0.8); Eosinophils # 0.6 10*3/uL (0.0-0.87); Eosinophils % 6.6 % (0.00-10.9); Hematocrit 26.2 VOL% (35.7-47.0); Hemoglobin 8.3 GM/DL (12.0-16.0); Immature Granulocytes % 3.1 %; Lymphocytes # 1.1 10*3/uL (1.4-4.0); Lymphocytes % 11.5 % (21.3-54.2); Mean Corpuscular HGB Conc 31.7 GM/DL (32-36); Mean Corpuscular Volume 94.9 FL (87-102); Mean Platelet Volume 11.4 FL (9.6-12.0); Monocytes # 1.3 10*3/uL (0.11-0.8); Neutrophils % 64.2 % (38.7-73.9); Platelet Count 265 T/CUMM (130-400); Red Blood Count 2.76 MC/CUMM (3.8-5.5); White Blood Count 9.5 T/CUMM (4-12)
[2021-08-18 05:36] LABS: Calcium 7.2 MG/DL (8.5-10.1); Osmolality,Calculated 291.8 MOS/KG (273-304); Potassium 3.8 MMOL/L (3.5-5.1)
[2021-08-18] MEDS: LEVOTHYROXINE 150 MCG TABLET PO SCH (06:01)
[2021-08-18] MEDS: ASPIRIN EC 81 MG TABLET PO SCH (10:39)
[2021-08-18] MEDS: PRAZOSIN 1 MG CAPSULE PO SCH ×2 (10:39→21:03)
[2021-08-18] MEDS: METOPROLOL TARTRATE 50 MG TABLET PO SCH ×2 (10:39→21:09)
[2021-08-18] MEDS: amLODIPine 10 MG TABLET PO SCH (10:40)
[2021-08-18] MEDS: FUROSEMIDE 80 MG TABLET PO SCH (10:40)
[2021-08-18] MEDS: SERTRALINE 100 MG TABLET PO SCH (10:40)
[2021-08-18] MEDS: ROSUVASTATIN 20 MG TABLET PO SCH (10:40)
[2021-08-18] MEDS: CHOLESTYRAMINE 4 GM PACK PO SCH ×2 (10:41→21:02)
[2021-08-18] MEDS: FERRIC GLUCONATE COMPLEX 125 MG in SODIUM CHLORIDE 0.9% 100 ML IV SCH (10:41)
[2021-08-18] MEDS: PANTOPRAZOLE 40 MG VIAL IV SCH (16:59)
[2021-08-18] MEDS: hydrOXYzine HCL 25 MG TABLET PO PRN (21:03)
[2021-08-19] MEDS: ALBUTEROL/IPRATROPIUM 3 ML NEB RESP TX SCH ×4 (00:17→19:15)
[2021-08-19] MEDS: VANCOMYCIN 50 MG/ML 60 ML/BOTTLE PO SCH ×4 (03:08→21:50)
[2021-08-19 05:19] LABS: Basophils # 0.1 10*3/uL (0.0-0.2); Basophils % 0.9 % (0.0-0.8); Eosinophils # 0.6 10*3/uL (0.0-0.87); Eosinophils % 6.3 % (0.00-10.9); Hemoglobin 8.3 GM/DL (12.0-16.0); Immature Granulocytes % 4.8 %; Immature Granulocytes Absolute 0.49 #; Lymphocytes # 1.4 10*3/uL (1.4-4.0); Lymphocytes % 13.9 % (21.3-54.2); Mean Corpuscular HGB Conc 30.7 GM/DL (32-36); Mean Corpuscular Volume 96.1 FL (87-102); Mean Platelet Volume 10.7 FL (9.6-12.0); Monocytes # 1.4 10*3/uL (0.11-0.8); Monocytes % 14.1 % (1.7-12.7); Platelet Count 317 T/CUMM (130-400); Red Blood Count 2.81 MC/CUMM (3.8-5.5); Red Cell Distribution Width 14.1 % (9.3-17.3); White Blood Count 10.2 T/CUMM (4-12)
[2021-08-19 05:32] LABS: Calcium 7.4 MG/DL (8.5-10.1); Osmolality,Calculated 290.8 MOS/KG (273-304); Potassium 3.8 MMOL/L (3.5-5.1)
[2021-08-19] MEDS: LEVOTHYROXINE 150 MCG TABLET PO SCH (06:10)
[2021-08-19] MEDS: ASPIRIN EC 81 MG TABLET PO SCH (09:58)
[2021-08-19] MEDS: METOPROLOL TARTRATE 50 MG TABLET PO SCH ×2 (09:58→21:49)
[2021-08-19] MEDS: amLODIPine 10 MG TABLET PO SCH (09:58)
[2021-08-19] MEDS: ROSUVASTATIN 20 MG TABLET PO SCH (09:58)
[2021-08-19] MEDS: SERTRALINE 100 MG TABLET PO SCH (09:58)
[2021-08-19] MEDS: SODIUM BICARBONATE 650 MG TABLET PO SCH ×2 (09:58→21:49)
[2021-08-19] MEDS: APIXABAN 2.5 MG TABLET PO SCH (09:59)
[2021-08-19] MEDS: PRAZOSIN 1 MG CAPSULE PO SCH ×2 (09:59→21:49)
[2021-08-19] MEDS: CHOLESTYRAMINE 4 GM PACK PO SCH ×2 (10:13→21:48)
[2021-08-19] MEDS: PANTOPRAZOLE 40 MG VIAL IV SCH (10:17)
[2021-08-19] MEDS: FERRIC GLUCONATE COMPLEX 125 MG in SODIUM CHLORIDE 0.9% 100 ML IV SCH (10:26)
[2021-08-19 13:28] LABS: Hematocrit 30.7 VOL% (35.7-47.0); Hemoglobin 9.8 GM/DL (12.0-16.0)
[2021-08-19 19:07] LABS: Hemoglobin 8.7 GM/DL (12.0-16.0)
[2021-08-20] MEDS: ALBUTEROL/IPRATROPIUM 3 ML NEB RESP TX SCH ×4 (02:24→19:40)
[2021-08-20] MEDS: VANCOMYCIN 50 MG/ML 60 ML/BOTTLE PO SCH ×4 (03:34→20:56)
[2021-08-20 04:42] LABS: Basophils # 0.1 10*3/uL (0.0-0.2); Basophils % 0.7 % (0.0-0.8); Eosinophils # 0.7 10*3/uL (0.0-0.87); Eosinophils % 6.6 % (0.00-10.9); Hematocrit 26.1 VOL% (35.7-47.0); Hemoglobin 7.9 GM/DL (12.0-16.0); Immature Granulocytes % 4.5 %; Immature Granulocytes Absolute 0.45 #; Lymphocytes # 1.5 10*3/uL (1.4-4.0); Lymphocytes % 15.2 % (21.3-54.2); Mean Corpuscular HGB Conc 30.3 GM/DL (32-36); Mean Platelet Volume 10.5 FL (9.6-12.0); Monocytes # 1.3 10*3/uL (0.11-0.8); Platelet Count 342 T/CUMM (130-400); Red Blood Count 2.69 MC/CUMM (3.8-5.5); Red Cell Distribution Width 14.3 % (9.3-17.3); White Blood Count 10.1 T/CUMM (4-12)
[2021-08-20 04:58] LABS: Calcium 7.4 MG/DL (8.5-10.1); Osmolality,Calculated 290.7 MOS/KG (273-304); Potassium 3.9 MMOL/L (3.5-5.1)
[2021-08-20] MEDS: LEVOTHYROXINE 150 MCG TABLET PO SCH (06:25)
[2021-08-20] MEDS: ROSUVASTATIN 20 MG TABLET PO SCH (09:04)
[2021-08-20] MEDS: SERTRALINE 100 MG TABLET PO SCH (09:04)
[2021-08-20] MEDS: PANTOPRAZOLE 40 MG VIAL IV SCH (09:04)
[2021-08-20] MEDS: amLODIPine 10 MG TABLET PO SCH (09:04)
[2021-08-20] MEDS: METOPROLOL TARTRATE 50 MG TABLET PO SCH ×2 (09:04→20:49)
[2021-08-20] MEDS: ASPIRIN EC 81 MG TABLET PO SCH (09:04)
[2021-08-20] MEDS: FERRIC GLUCONATE COMPLEX 125 MG in SODIUM CHLORIDE 0.9% 100 ML IV SCH (09:05)
[2021-08-20] MEDS: SODIUM BICARBONATE 650 MG TABLET PO SCH ×2 (09:05→20:49)
[2021-08-20] MEDS: PRAZOSIN 1 MG CAPSULE PO SCH ×2 (09:05→20:49)
[2021-08-20] MEDS: CHOLESTYRAMINE 4 GM PACK PO SCH (10:38)
[2021-08-20] MEDS: NYSTATIN 500,000 UNIT/5 ML UDCUP SWISH/SWAL SCH ×3 (12:33→20:54)
[2021-08-20] MEDS: FLUCONAZOLE INJ 200 MG/100 ML PREMIX IV SCH (16:53)
[2021-08-20] MEDS: APIXABAN 2.5 MG TABLET PO SCH (21:48)
[2021-08-21] MEDS: ALBUTEROL/IPRATROPIUM 3 ML NEB RESP TX SCH ×4 (01:02→18:36)
[2021-08-21] MEDS: VANCOMYCIN 50 MG/ML 60 ML/BOTTLE PO SCH ×4 (02:57→21:53)
[2021-08-21 05:09] LABS: Basophils # 0.1 10*3/uL (0.0-0.2); Basophils % 0.9 % (0.0-0.8); Eosinophils # 0.7 10*3/uL (0.0-0.87); Eosinophils % 6.2 % (0.00-10.9); Hematocrit 26.3 VOL% (35.7-47.0); Hemoglobin 7.9 GM/DL (12.0-16.0); Immature Granulocytes % 4.8 %; Immature Granulocytes Absolute 0.51 #; Lymphocytes # 1.8 10*3/uL (1.4-4.0); Lymphocytes % 16.7 % (21.3-54.2); Mean Platelet Volume 10.4 FL (9.6-12.0); Monocytes # 1.3 10*3/uL (0.11-0.8); Monocytes % 12.2 % (1.7-12.7); Neutrophils % 59.2 % (38.7-73.9); Platelet Count 396 T/CUMM (130-400); Red Blood Count 2.71 MC/CUMM (3.8-5.5); Red Cell Distribution Width 14.6 % (9.3-17.3); White Blood Count 10.6 T/CUMM (4-12)
[2021-08-21 05:37] LABS: Eosinophils 5 % (0-10); Lymphocytes 20 % (20-55); Myelocytes 2 %; Total Cells Counted 100
[2021-08-21 05:38] LABS: Macrocytosis Slight
[2021-08-21 05:39] LABS: Platelet Estimate Normal
[2021-08-21 05:40] LABS: Ovalocytes Slight; Target Cells Slight
[2021-08-21 05:51] LABS: Calcium 7.9 MG/DL (8.5-10.1); Osmolality,Calculated 288.7 MOS/KG (273-304); Potassium 4.1 MMOL/L (3.5-5.1)
[2021-08-21] MEDS: LEVOTHYROXINE 150 MCG TABLET PO SCH (05:59)
[2021-08-21] MEDS: FERRIC GLUCONATE COMPLEX 125 MG in SODIUM CHLORIDE 0.9% 100 ML IV SCH (09:03)
[2021-08-21] MEDS: PANTOPRAZOLE 40 MG VIAL IV SCH (09:05)
[2021-08-21] MEDS: NYSTATIN 500,000 UNIT/5 ML UDCUP SWISH/SWAL SCH ×4 (09:05→20:50)
[2021-08-21] MEDS: APIXABAN 2.5 MG TABLET PO SCH ×2 (09:06→20:48)
[2021-08-21] MEDS: SERTRALINE 100 MG TABLET PO SCH (09:06)
[2021-08-21] MEDS: PRAZOSIN 1 MG CAPSULE PO SCH ×2 (09:06→20:50)
[2021-08-21] MEDS: ASPIRIN EC 81 MG TABLET PO SCH (09:06)
[2021-08-21] MEDS: METOPROLOL TARTRATE 50 MG TABLET PO SCH ×2 (09:06→20:49)
[2021-08-21] MEDS: amLODIPine 10 MG TABLET PO SCH (09:06)
[2021-08-21] MEDS: ROSUVASTATIN 20 MG TABLET PO SCH (09:06)
[2021-08-21] MEDS ORDERED: CHOLESTYRAMINE 4 GM PACK PO SCH (10:00)
[2021-08-21] MEDS ORDERED: SODIUM CHLORIDE 0.65% NASAL SPRAY 45 ML BOTTLE BOTH NARES PRN (13:59)
[2021-08-21] MEDS ORDERED: MELATONIN 3 MG TABLET PO PRN (14:00)
[2021-08-21] MEDS: FLUCONAZOLE INJ 200 MG/100 ML PREMIX IV SCH (16:14)
[2021-08-21] MEDS: ACETAMINOPHEN 325 MG TABLET PO PRN (21:10)
[2021-08-22] MEDS: ALBUTEROL/IPRATROPIUM 3 ML NEB RESP TX SCH ×3 (01:05→12:00)
[2021-08-22] MEDS: VANCOMYCIN 50 MG/ML 60 ML/BOTTLE PO SCH ×2 (02:56→10:35)
[2021-08-22 05:06] LABS: Basophils # 0.1 10*3/uL (0.0-0.2); Basophils % 0.8 % (0.0-0.8); Eosinophils # 0.6 10*3/uL (0.0-0.87); Eosinophils % 6.7 % (0.00-10.9); Hematocrit 24.8 VOL% (35.7-47.0); Hemoglobin 7.5 GM/DL (12.0-16.0); Immature Granulocytes % 4.7 %; Immature Granulocytes Absolute 0.44 #; Lymphocytes # 1.4 10*3/uL (1.4-4.0); Lymphocytes % 14.5 % (21.3-54.2); Mean Corpuscular HGB Conc 30.2 GM/DL (32-36); Mean Corpuscular Volume 98.4 FL (87-102); Mean Platelet Volume 10.3 FL (9.6-12.0); Monocytes % 11.2 % (1.7-12.7); Neutrophils % 62.1 % (38.7-73.9); Platelet Count 373 T/CUMM (130-400); Red Blood Count 2.52 MC/CUMM (3.8-5.5); Red Cell Distribution Width 15.5 % (9.3-17.3); White Blood Count 9.3 T/CUMM (4-12)
[2021-08-22 05:27] LABS: Calcium 7.8 MG/DL (8.5-10.1); Osmolality,Calculated 293.5 MOS/KG (273-304); Potassium 4.5 MMOL/L (3.5-5.1)
[2021-08-22] MEDS: LEVOTHYROXINE 150 MCG TABLET PO SCH (05:46)
[2021-08-22] MEDS ORDERED: EPOETIN ALFA-EPBX 4,000 UNIT/ML VIAL SUBCUT ONE ×2 (08:31→10:00)
[2021-08-22] MEDS ORDERED: SODIUM CHLORIDE 0.9% 1,000 ML IV PRN (08:53)
[2021-08-22] MEDS ORDERED: CHOLESTYRAMINE 4 GM PACK PO SCH (10:00)
[2021-08-22] MEDS: PRAZOSIN 1 MG CAPSULE PO SCH (10:33)
[2021-08-22] MEDS: ASPIRIN EC 81 MG TABLET PO SCH (10:34)
[2021-08-22] MEDS: APIXABAN 2.5 MG TABLET PO SCH (10:34)
[2021-08-22] MEDS: METOPROLOL TARTRATE 50 MG TABLET PO SCH (10:34)
[2021-08-22] MEDS: SERTRALINE 100 MG TABLET PO SCH (10:34)
[2021-08-22] MEDS: ROSUVASTATIN 20 MG TABLET PO SCH (10:34)
[2021-08-22] MEDS: amLODIPine 10 MG TABLET PO SCH (10:34)
[2021-08-22] MEDS: NYSTATIN 500,000 UNIT/5 ML UDCUP SWISH/SWAL SCH (10:35)
[2021-08-22] MEDS: PANTOPRAZOLE 40 MG VIAL IV SCH (10:35)
[2021-08-22 12:07] VITALS: BP 157/43
== END 2021-08-22 14:08 | disposition swing bed (61) | DRG 371 ==
LOC: N.ED 17:03 → SUATTDRO 19:46 → N.TELEN 19:46 → N.CC 08-14 16:27 → N.TELEN 08-16 18:17
PROVIDERS: ADMIT Family Medicine; ATTEND Internal Medicine

== ENCOUNTER 2021-11-12 17:16 | Inpatient (IN) ==
[2021-11-12] MEDS ORDERED: ONDANSETRON 4 MG/2 ML VIAL IV ONE (20:54)
[2021-11-12] MEDS ORDERED: SODIUM CHLORIDE 0.9% 500 ML IV STA (20:54)
[2021-11-12 21:26] LABS: Basophils # 0.1 10*3/uL (0.0-0.2); Basophils % 0.4 % (0.0-0.8); Eosinophils # 0.1 10*3/uL (0.0-0.87); Eosinophils % 0.4 % (0.00-10.9); Hematocrit 32.6 VOL% (35.7-47.0); Hemoglobin 10.3 GM/DL (12.0-16.0); Immature Granulocytes Absolute 0.16 #; Lymphocytes # 1.6 10*3/uL (1.4-4.0); Lymphocytes % 10.6 % (21.3-54.2); Mean Corpuscular HGB Conc 31.6 GM/DL (32-36); Mean Corpuscular Volume 91.1 FL (87-102); Monocytes # 1.4 10*3/uL (0.11-0.8); Monocytes % 9.1 % (1.7-12.7); Neutrophils % 78.5 % (38.7-73.9); Platelet Count 339 T/CUMM (130-400); Red Blood Count 3.58 MC/CUMM (3.8-5.5); Red Cell Distribution Width 16.8 % (9.3-17.3); White Blood Count 15.3 T/CUMM (4-12)
[2021-11-12 21:40] LABS: INR 1.2; PT Patient Result 12.7 SECS (10.1-12.1)
[2021-11-12 21:45] LABS: Alanine Aminotransferase 310 U/L (13-56); Albumin 2.6 G/DL (3.4-5.0); Alkaline Phosphatase 79 U/L (45-117); Aspartate Amino Transferase 452 U/L (0-37); Bilirubin,Total < 0.39 MG/DL (0.20-1.00); Blood Urea Nitrogen 100 MG/DL (7-18); Calcium 8.6 MG/DL (8.5-10.1); Carbon Dioxide 17 MMOL/L (21-32); Chloride 104 MMOL/L (98-107); Glucose 95 MG/DL (74-106); Osmolality,Calculated 309.4 MOS/KG (273-304); Potassium 4.1 MMOL/L (3.5-5.1); Sodium 140 MMOL/L (136-145); Total Protein 5.9 G/DL (6.4-8.2)
[2021-11-12 21:57] LABS: Amorphous Crystals,Urine Occasional /HPF (Few); RBC,Urine 462 /HPF (0-4); Squamous Epithelial Cell,Urine Occasional /HPF (0-10)
[2021-11-12 22:01] LABS: Glucose,Urine (UA) Negative (Negative); Ketones,Urine Negative (Negative); Nitrite,Urine Negative (Negative); Protein,Urine >=300 mg/dL (Negative); Urine Appearance Clear (Clear); Urine Color Yellow (Yellow); Urine Specific Gravity 1.025 (1.001-1.035); Urine pH 5.5 (4.5-8.0)
[2021-11-12 22:02] LABS: Bilirubin,Urine Negative (Negative); Blood, Urine Large mg/dL (Negative); Urine Urobilinogen 0.2 eU/dL (<2.0)
[2021-11-13] MEDS ORDERED: GLUCAGON 1 MG VIAL IM PRN (00:38)
[2021-11-13] MEDS ORDERED: DEXTROSE 10% 250 ML BAG IV PRN (00:38)
[2021-11-13] MEDS: cefTRIAXone 1,000 MG in SODIUM CHLORIDE 0.9% 100 ML IV SCH (01:45)
[2021-11-13] MEDS: SODIUM BICARB INJ 50 MEQ in DEXTROSE 5% NACL 0.9% 1,000 ML IV SCH ×3 (02:05→18:48)
[2021-11-13] MEDS ORDERED: hydrALAZINE 20 MG/1 ML VIAL IV PRN (04:14)
[2021-11-13] MEDS: MORPHINE 2 MG/1 ML SYRINGE IV PRN (04:21)
[2021-11-13] MEDS: ONDANSETRON 4 MG/2 ML VIAL IV PRN (04:21)
[2021-11-13 04:25] LABS: Basophils # 0.1 10*3/uL (0.0-0.2); Basophils % 0.5 % (0.0-0.8); Eosinophils # 0.1 10*3/uL (0.0-0.87); Eosinophils % 0.9 % (0.00-10.9); Hematocrit 27.9 VOL% (35.7-47.0); Hemoglobin 8.9 GM/DL (12.0-16.0); Immature Granulocytes % 1.2 %; Immature Granulocytes Absolute 0.19 #; Lymphocytes # 1.8 10*3/uL (1.4-4.0); Lymphocytes % 11.7 % (21.3-54.2); Mean Corpuscular HGB Conc 31.9 GM/DL (32-36); Mean Corpuscular Volume 91.2 FL (87-102); Monocytes # 1.5 10*3/uL (0.11-0.8); Monocytes % 9.6 % (1.7-12.7); Neutrophils % 76.1 % (38.7-73.9); Platelet Count 294 T/CUMM (130-400); Red Blood Count 3.06 MC/CUMM (3.8-5.5); White Blood Count 15.3 T/CUMM (4-12)
[2021-11-13 05:18] LABS: Alanine Aminotransferase 276 U/L (13-56); Albumin 2.2 G/DL (3.4-5.0); Alkaline Phosphatase 65 U/L (45-117); Aspartate Amino Transferase 395 U/L (0-37); Bilirubin,Total < 0.39 MG/DL (0.20-1.00); Blood Urea Nitrogen 105 MG/DL (7-18); Calcium 8.7 MG/DL (8.5-10.1); Carbon Dioxide 16 MMOL/L (21-32); Chloride 105 MMOL/L (98-107); Glucose 122 MG/DL (74-106); Osmolality,Calculated 312.4 MOS/KG (273-304); Potassium 3.5 MMOL/L (3.5-5.1); Sodium 140 MMOL/L (136-145); Total Protein 5.9 G/DL (6.4-8.2)
[2021-11-13] MEDS ORDERED: ALPRAZolam 0.5 MG TABLET PO SCH (06:00)
[2021-11-13] MEDS: LEVOTHYROXINE 150 MCG TABLET PO SCH (06:17)
[2021-11-13] MEDS: ROSUVASTATIN 20 MG TABLET PO SCH (10:06)
[2021-11-13] MEDS: SERTRALINE 50 MG TABLET PO SCH (10:07)
[2021-11-13] MEDS: amLODIPine 10 MG TABLET PO SCH (10:07)
[2021-11-13] MEDS: HEPARIN 5,000 UNIT/1 ML VIAL SUBCUT SCH ×2 (10:07→20:21)
[2021-11-13] MEDS: PANTOPRAZOLE 40 MG VIAL IV SCH (10:08)
[2021-11-13] MEDS: SODIUM BICARB INJ 150 MEQ in DEXTROSE 5% 850 ML IV SCH (18:38)
[2021-11-13] MEDS ORDERED: SODIUM BICARB INJ 100 MEQ in DEXTROSE 5% 1,000 ML IV SCH (18:53)
[2021-11-13] MEDS: carvediloL 12.5 MG TABLET PO SCH (20:21)
[2021-11-14] MEDS: SODIUM BICARB INJ 150 MEQ in DEXTROSE 5% 850 ML IV SCH ×2 (02:14→18:32)
[2021-11-14] MEDS: ONDANSETRON 4 MG/2 ML VIAL IV PRN ×3 (04:36→21:28)
[2021-11-14 05:43] LABS: Basophils % 0.2 % (0.0-0.8); Eosinophils # 0.2 10*3/uL (0.0-0.87); Eosinophils % 1.8 % (0.00-10.9); Hematocrit 25.3 VOL% (35.7-47.0); Hemoglobin 8.1 GM/DL (12.0-16.0); Immature Granulocytes % 0.6 %; Immature Granulocytes Absolute 0.08 #; Lymphocytes % 7.5 % (21.3-54.2); Mean Corpuscular Volume 89.7 FL (87-102); Mean Platelet Volume 11.4 FL (9.6-12.0); Monocytes # 0.8 10*3/uL (0.11-0.8); Monocytes % 6.4 % (1.7-12.7); Neutrophils % 83.5 % (38.7-73.9); Platelet Count 255 T/CUMM (130-400); Red Blood Count 2.82 MC/CUMM (3.8-5.5)
[2021-11-14 06:02] LABS: Alanine Aminotransferase 311 U/L (13-56); Alkaline Phosphatase 57 U/L (45-117); Aspartate Amino Transferase 517 U/L (0-37); Bilirubin,Total < 0.39 MG/DL (0.20-1.00); Blood Urea Nitrogen 99 MG/DL (7-18); Calcium 7.4 MG/DL (8.5-10.1); Carbon Dioxide 22 MMOL/L (21-32); Chloride 100 MMOL/L (98-107); Glucose 143 MG/DL (74-106); Osmolality,Calculated 311.4 MOS/KG (273-304); Potassium 2.9 MMOL/L (3.5-5.1); Sodium 140 MMOL/L (136-145); Total Protein 5.1 G/DL (6.4-8.2)
[2021-11-14] MEDS: LEVOTHYROXINE 150 MCG TABLET PO SCH (06:04)
[2021-11-14] MEDS: PANTOPRAZOLE 40 MG VIAL IV SCH (09:34)
[2021-11-14] MEDS: cefTRIAXone 1,000 MG in SODIUM CHLORIDE 0.9% 100 ML IV SCH (09:34)
[2021-11-14] MEDS: POTASSIUM CHLORIDE 20 MEQ TABLET PO SCH ×3 (09:35→20:01)
[2021-11-14] MEDS: SERTRALINE 50 MG TABLET PO SCH (09:36)
[2021-11-14] MEDS: amLODIPine 10 MG TABLET PO SCH (09:36)
[2021-11-14] MEDS: ROSUVASTATIN 20 MG TABLET PO SCH (09:36)
[2021-11-14] MEDS: POTASSIUM CHLORIDE RIDER 10 MEQ/100 ML PREMIX IV SCH ×5 (09:37→14:58)
[2021-11-14] MEDS: HEPARIN 5,000 UNIT/1 ML VIAL SUBCUT SCH ×2 (09:38→20:01)
[2021-11-14] MEDS: SODIUM BICARB INJ 150 MEQ in DEXTROSE 5% 1,000 ML IV SCH ×2 (13:24→18:31)
[2021-11-14] MEDS ORDERED: MIDAZOLAM 2 MG/2 ML VIAL ONE (15:56)
[2021-11-14] MEDS ORDERED: propofoL 200 MG/20 ML VIAL IV ONE (15:56)
[2021-11-14] MEDS ORDERED: LIDOCAINE 1%/EPI INJ 20 ML VIAL ONE (15:56)
[2021-11-14] MEDS ORDERED: BUPIVACAINE MPF 0.25% 10 ML VIAL ONE (15:56)
[2021-11-14] MEDS ORDERED: LIDOCAINE 2% 5 ML VIAL ONE (15:56)
[2021-11-14] MEDS ORDERED: fentaNYL 100 MCG/2 ML VIAL ONE (15:56)
[2021-11-14] MEDS ORDERED: SODIUM CHLORIDE 0.9% 250 ML IV ONE (15:57)
[2021-11-14] MEDS ORDERED: ONDANSETRON 4 MG/2 ML VIAL ONE (16:18)
[2021-11-14] MEDS ORDERED: ALUM/MAG/SIMETH/LIDO VISC 1:1 30 ML BOTTLE PO ONE (20:00)
[2021-11-14] MEDS: carvediloL 12.5 MG TABLET PO SCH (20:01)
[2021-11-14] MEDS: MORPHINE 2 MG/1 ML SYRINGE IV PRN (21:11)
[2021-11-15] MEDS: ACETAMINOPHEN 325 MG TABLET PO PRN ×3 (02:29→20:13)
[2021-11-15 04:57] LABS: Basophils % 0.3 % (0.0-0.8); Eosinophils # 0.1 10*3/uL (0.0-0.87); Eosinophils % 0.9 % (0.00-10.9); Hematocrit 23.2 VOL% (35.7-47.0); Hemoglobin 7.4 GM/DL (12.0-16.0); Immature Granulocytes % 0.7 %; Immature Granulocytes Absolute 0.09 #; Lymphocytes # 1.3 10*3/uL (1.4-4.0); Lymphocytes % 10.7 % (21.3-54.2); Mean Corpuscular HGB Conc 31.9 GM/DL (32-36); Mean Corpuscular Volume 90.6 FL (87-102); Mean Platelet Volume 11.7 FL (9.6-12.0); Monocytes # 0.8 10*3/uL (0.11-0.8); Monocytes % 6.5 % (1.7-12.7); Neutrophils % 80.9 % (38.7-73.9); Platelet Count 245 T/CUMM (130-400); Red Blood Count 2.56 MC/CUMM (3.8-5.5); White Blood Count 12.6 T/CUMM (4-12)
[2021-11-15 05:15] LABS: Alanine Aminotransferase 333 U/L (13-56); Albumin 1.6 G/DL (3.4-5.0); Alkaline Phosphatase 51 U/L (45-117); Aspartate Amino Transferase 592 U/L (0-37); Bilirubin,Total < 0.39 MG/DL (0.20-1.00); Blood Urea Nitrogen 101 MG/DL (7-18); Carbon Dioxide 28 MMOL/L (21-32); Chloride 98 MMOL/L (98-107); Glucose 99 MG/DL (74-106); Osmolality,Calculated 308.5 MOS/KG (273-304); Sodium 139 MMOL/L (136-145); Total Protein 4.7 G/DL (6.4-8.2)
[2021-11-15] MEDS: LEVOTHYROXINE 150 MCG TABLET PO SCH (05:49)
[2021-11-15] MEDS: ONDANSETRON 4 MG/2 ML VIAL IV PRN ×3 (08:00→20:18)
[2021-11-15 10:17] LABS: Hepatitis B Core IgM Quant < 0.05 Index; Hepatitis B Surface Ag Result Non-Reactive (NonReactive); Hepatitis C Virus Ab Quant 0.05 Index; Hepatitis C Virus Ab Result Non-Reactive (NonReactive)
[2021-11-15] MEDS: POTASSIUM CHLORIDE 20 MEQ TABLET PO SCH ×2 (12:32→20:13)
[2021-11-15] MEDS: PANTOPRAZOLE 40 MG VIAL IV SCH (12:33)
[2021-11-15] MEDS: SERTRALINE 50 MG TABLET PO SCH (12:33)
[2021-11-15] MEDS: HEPARIN 5,000 UNIT/1 ML VIAL SUBCUT SCH ×2 (12:34→20:14)
[2021-11-15] MEDS ORDERED: HEPARIN 10,000 UNIT/10 ML VIAL IV PRN (16:53)
[2021-11-15] MEDS: ALPRAZolam 0.5 MG TABLET PO PRN (20:13)
[2021-11-15] MEDS ORDERED: ALPRAZolam 0.25 MG TABLET PO ONE (23:06)
[2021-11-15] MEDS ORDERED: ALUMINUM/MAGNES/SIMETH MAX STR 30 ML UDCUP PO PRN (23:06)
[2021-11-16] MEDS: LEVOTHYROXINE 150 MCG TABLET PO SCH (05:48)
[2021-11-16 06:25] LABS: Basophils % 0.3 % (0.0-0.8); Eosinophils # 0.3 10*3/uL (0.0-0.87); Hematocrit 25.2 VOL% (35.7-47.0); Hemoglobin 7.8 GM/DL (12.0-16.0); Immature Granulocytes % 0.8 %; Immature Granulocytes Absolute 0.11 #; Lymphocytes # 1.3 10*3/uL (1.4-4.0); Lymphocytes % 9.2 % (21.3-54.2); Mean Corpuscular Volume 93.7 FL (87-102); Monocytes # 0.7 10*3/uL (0.11-0.8); Monocytes % 4.8 % (1.7-12.7); Neutrophils % 82.9 % (38.7-73.9); Platelet Count 273 T/CUMM (130-400); Red Blood Count 2.69 MC/CUMM (3.8-5.5); Red Cell Distribution Width 17.2 % (9.3-17.3); White Blood Count 14.2 T/CUMM (4-12)
[2021-11-16 06:52] LABS: Alanine Aminotransferase 513 U/L (13-56); Albumin 1.6 G/DL (3.4-5.0); Alkaline Phosphatase 55 U/L (45-117); Aspartate Amino Transferase 1092 U/L (0-37); Bilirubin,Total < 0.39 MG/DL (0.20-1.00); Blood Urea Nitrogen 62 MG/DL (7-18); Calcium 7.3 MG/DL (8.5-10.1); Carbon Dioxide 28 MMOL/L (21-32); Chloride 103 MMOL/L (98-107); Glucose 87 MG/DL (74-106); Osmolality,Calculated 297.3 MOS/KG (273-304); Potassium 4.4 MMOL/L (3.5-5.1); Sodium 141 MMOL/L (136-145); Total Protein 4.9 G/DL (6.4-8.2)
[2021-11-16] MEDS ORDERED: MAGNESIUM HYDROXIDE SUSP 30 ML UDCUP PO PRN (07:19)
[2021-11-16] MEDS: ONDANSETRON 4 MG/2 ML VIAL IV PRN ×2 (07:46→17:48)
[2021-11-16] MEDS ORDERED: EPOETIN ALFA-EPBX 3,000 UNIT/ML VIAL IV PRN (07:47)
[2021-11-16] MEDS: HEPARIN 5,000 UNIT/1 ML VIAL SUBCUT SCH ×2 (12:54→22:11)
[2021-11-16] MEDS: POTASSIUM CHLORIDE 20 MEQ TABLET PO SCH ×2 (13:03→22:09)
[2021-11-16] MEDS: PANTOPRAZOLE 40 MG VIAL IV SCH (13:05)
[2021-11-16] MEDS: SERTRALINE 50 MG TABLET PO SCH (13:06)
[2021-11-16] MEDS ORDERED: SERTRALINE 50 MG TABLET PO ONE (17:16)
[2021-11-16] MEDS: MORPHINE 2 MG/1 ML SYRINGE IV PRN (17:47)
[2021-11-17] MEDS: ACETAMINOPHEN 325 MG TABLET PO PRN ×2 (00:17→10:57)
[2021-11-17] MEDS: ALPRAZolam 0.5 MG TABLET PO PRN (01:38)
[2021-11-17 05:38] LABS: Basophils % 0.3 % (0.0-0.8); Eosinophils # 0.3 10*3/uL (0.0-0.87); Eosinophils % 2.5 % (0.00-10.9); Hematocrit 24.9 VOL% (35.7-47.0); Hemoglobin 7.4 GM/DL (12.0-16.0); Immature Granulocytes % 1.1 %; Immature Granulocytes Absolute 0.15 #; Lymphocytes # 1.1 10*3/uL (1.4-4.0); Lymphocytes % 7.9 % (21.3-54.2); Mean Corpuscular HGB Conc 29.7 GM/DL (32-36); Mean Corpuscular Volume 97.6 FL (87-102); Mean Platelet Volume 11.4 FL (9.6-12.0); Monocytes # 0.7 10*3/uL (0.11-0.8); Monocytes % 4.9 % (1.7-12.7); Neutrophils % 83.3 % (38.7-73.9); Platelet Count 283 T/CUMM (130-400); Red Blood Count 2.55 MC/CUMM (3.8-5.5); Red Cell Distribution Width 17.2 % (9.3-17.3); White Blood Count 13.9 T/CUMM (4-12)
[2021-11-17 06:00] LABS: Alanine Aminotransferase 695 U/L (13-56); Albumin 1.5 G/DL (3.4-5.0); Alkaline Phosphatase 63 U/L (45-117); Aspartate Amino Transferase 1359 U/L (0-37); Bilirubin,Total < 0.39 MG/DL (0.20-1.00); Blood Urea Nitrogen 37 MG/DL (7-18); Calcium 7.6 MG/DL (8.5-10.1); Carbon Dioxide 29 MMOL/L (21-32); Chloride 107 MMOL/L (98-107); Glucose 107 MG/DL (74-106); Osmolality,Calculated 291.1 MOS/KG (273-304); Potassium 5.2 MMOL/L (3.5-5.1); Sodium 142 MMOL/L (136-145); Total Protein 4.9 G/DL (6.4-8.2)
[2021-11-17] MEDS: LEVOTHYROXINE 150 MCG TABLET PO SCH (06:23)
[2021-11-17] MEDS: SERTRALINE 100 MG TABLET PO SCH (10:56)
[2021-11-17] MEDS: HEPARIN 5,000 UNIT/1 ML VIAL SUBCUT SCH ×2 (10:57→22:00)
[2021-11-17] MEDS: PANTOPRAZOLE 40 MG VIAL IV SCH (11:02)
[2021-11-17] MEDS ORDERED: traMADol 50 MG TABLET PO PRN (11:52)
[2021-11-17] MEDS: amLODIPine 10 MG TABLET PO SCH (17:48)
[2021-11-17] MEDS: carvediloL 12.5 MG TABLET PO SCH (21:58)
[2021-11-17] MEDS: ZINC OXIDE PASTE 113 GM TUBE TOP SCH (21:58)
[2021-11-18] MEDS: ALPRAZolam 0.5 MG TABLET PO PRN (00:16)
[2021-11-18 06:50] LABS: Basophils # 0.1 10*3/uL (0.0-0.2); Basophils % 0.4 % (0.0-0.8); Eosinophils # 0.4 10*3/uL (0.0-0.87); Eosinophils % 3.1 % (0.00-10.9); Hematocrit 24.7 VOL% (35.7-47.0); Hemoglobin 7.3 GM/DL (12.0-16.0); Immature Granulocytes % 1.5 %; Immature Granulocytes Absolute 0.19 #; Lymphocytes # 1.4 10*3/uL (1.4-4.0); Lymphocytes % 10.4 % (21.3-54.2); Mean Corpuscular HGB Conc 29.6 GM/DL (32-36); Mean Corpuscular Volume 99.6 FL (87-102); Mean Platelet Volume 11.5 FL (9.6-12.0); Monocytes # 0.7 10*3/uL (0.11-0.8); Monocytes % 5.3 % (1.7-12.7); Neutrophils % 79.3 % (38.7-73.9); Platelet Count 303 T/CUMM (130-400); Red Blood Count 2.48 MC/CUMM (3.8-5.5); Red Cell Distribution Width 16.9 % (9.3-17.3); White Blood Count 13.1 T/CUMM (4-12)
[2021-11-18] MEDS: LEVOTHYROXINE 150 MCG TABLET PO SCH (07:17)
[2021-11-18 07:26] LABS: Alanine Aminotransferase 717 U/L (13-56); Albumin 1.5 G/DL (3.4-5.0); Alkaline Phosphatase 68 U/L (45-117); Aspartate Amino Transferase 970 U/L (0-37); Bilirubin,Direct < 0.100 MG/DL (0.0-0.20); Bilirubin,Indirect 0.3 MG/DL (0.0-1.0); Bilirubin,Total < 0.39 MG/DL (0.20-1.00); Blood Urea Nitrogen 22 MG/DL (7-18); Calcium 7.9 MG/DL (8.5-10.1); Carbon Dioxide 28 MMOL/L (21-32); Chloride 104 MMOL/L (98-107); Glucose 88 MG/DL (74-106); Osmolality,Calculated 280.4 MOS/KG (273-304); Potassium 3.6 MMOL/L (3.5-5.1); Sodium 140 MMOL/L (136-145); Total Protein 4.9 G/DL (6.4-8.2)
[2021-11-18] MEDS: PANTOPRAZOLE 40 MG VIAL IV SCH (10:08)
[2021-11-18] MEDS: amLODIPine 10 MG TABLET PO SCH (10:09)
[2021-11-18] MEDS: HEPARIN 5,000 UNIT/1 ML VIAL SUBCUT SCH (10:09)
[2021-11-18] MEDS: SERTRALINE 100 MG TABLET PO SCH (10:09)
[2021-11-18] MEDS: ZINC OXIDE PASTE 113 GM TUBE TOP SCH (10:10)
[2021-11-18 11:55] VITALS: BP 139/38
[2021-11-21 14:51] LABS: Smooth Muscle Antibody Negative (Negative)
== END 2021-11-18 15:25 | disposition home health service (06) | DRG 673 ==
LOC: N.ED 17:16 → N.EDINP 11-13 00:38 → N.5E 11-13 07:25
PROVIDERS: ADMIT Internal Medicine; ATTEND Internal Medicine